=== PATIENT | male | born 1985 | race Hispanic/Latino ===

== ENCOUNTER 2017-10-02 16:51 | Emergency (ER) | payer SELFPAY ==
--- NOTE | 2017-10-02 17:16 | ER ---
Nurse's Notes [facility] Name: Tarik Solis Age: 32 yrs Sex: Male : 1985 Arrival Date: 10/02/2017 Time: 16:53 Bed 27 Private MD: Micha Francis Diagnosis: Encounter for removal of sutures Presentation: 10/02 16:54 Presenting complaint: Patient states: sutures on my R lower eye was placed last hj Thursday and is due for removal;. Transition of care: patient was not received from another setting of care. Onset of symptoms was October 02, 2017. Risk Assessment: Do you want to hurt yourself or someone else? Patient reports no desire to harm self or others. Initial Sepsis Screen: Does the patient meet any 2 criteria? No. Patient's initial sepsis screen is negative. Does the patient have a suspected source of infection? No. Patient's initial sepsis screen is negative. Care prior to arrival: None. 16:54 Method Of Arrival: Ambulatory 16:54 Acuity: KAITLIN 4 hj Triage Assessment: 16:55 General: Appears in no apparent distress. uncomfortable, Behavior is calm, cooperative, hj appropriate for age. Pain: Denies pain. Historical: - Allergies: 16:56 No Known Allergies; hj - Home Meds: 16:56 None [Active]; hj - PMHx: 16:56 None; hj - PSHx: 16:56 None; hj - Immunization history:: Adult Immunizations up to date. - Social history:: Smoking status: Patient uses tobacco products, smokes one pack cigarettes per day. Patient uses alcohol, occasionally. - Ebola Screening: : Patient negative for fever greater than or equal to 101.5 degrees Fahrenheit, and additional compatible Ebola Virus Disease symptoms Patient denies exposure to infectious person Patient denies travel to an Ebola-affected area in the 21 days before illness onset. Screenin:55 Abuse screen: Denies threats or abuse. Denies injuries from another. Nutritional hj screening: No deficits noted. Tuberculosis screening: No symptoms or risk factors identified. Fall Risk None identified. Assessment: 17:07 Derm: Skin is intact, Wound noted face Wound is post sutured wound, healed. mg2 Vital Signs: 16:56 BP 151 / 91; Pulse 96; Resp 18; Temp 97.5(TE); Pulse Ox 100% on R/A; Weight 117.93 kg; hj Height 5 ft. 9 in. (175.26 cm); Pain 0/10; 16:56 Body Mass Index 38.39 (117.93 kg, 175.26 cm) ED Course: 16:53 Patient arrived in ED. sb2 16:54 Micha Francis MD is Private Physician. sb2 16:55 Triage completed. hj 16:55 Arm band placed on left wrist. hj 16:56 Patient has correct armband on for positive identification. Bed in low position. Call light in reach. Side rails up X 1. 16:59 Don White PA is PHCP. cp 16:59 Joaquin Trinh MD is Attending Physician. cp 17:07 Javon Martinez, NIRANJAN is Primary Nurse. mg2 17:08 Patient did not have IV access during this emergency room visit. mg2 17:31 Removal of Removed sutures from face Suture site is well healed Patient tolerated well. mg2 17:32 No provider procedures requiring assistance completed. mg2 Administered Medications: No medications were administered Outcome: 17:15 Discharge ordered by MD. cp 17:32 Discharged to home ambulatory, with family. mg2 17:32 Condition: stable 17:32 Discharge instructions given to patient, family, Instructed on discharge instructions, follow up and referral plans. Demonstrated understanding of instructions, follow-up care. 17:32 Patient left the ED. mg2 Signatures: Herberth Marrero RN RN Don White PA PA Yanira Holm sb2 Javon Martinez, NIRANJAN RN mg2 Corrections: (The following items were deleted from the chart) 16:59 16:56 Pulse 96bpm; Resp 18bpm; Pulse Ox 100% RA; Temp 97.5F Temporal; 117.93 kg; Height hj 5 ft. 9 in.; BMI: 38.3; Pain 0/10; hj
--- NOTE | 2017-10-02 17:16 | EDPHYS ---
Physician Documentation [facility] Name: Tarik Solis Age: 32 yrs Sex: Male : 1985 Arrival Date: 10/02/2017 Time: 16:53 Bed 27 Private MD: Micha Francis ED Physician Joaquin Trinh HPI: 10/02 17:10 This 32 yrs old Male presents to ER via Ambulatory with complaints of Suture cp Removal. 17:10 The patient has sutures on the face. Previous treatment: The patient was initially cp treated 6 day(s) ago, the care was rendered at [place], [place], Treatment type: The patient's original treatment included sutures. Sutures/мария progress: The patient has no c/o's. The wound is well-healing with no redness, swelling, discharge, or dehiscence reported. Historical: - Allergies: 16:56 No Known Allergies; hj - Home Meds: 16:56 None [Active]; hj - PMHx: 16:56 None; hj - PSHx: 16:56 None; hj - Immunization history:: Adult Immunizations up to date. - Social history:: Smoking status: Patient uses tobacco products, smokes one pack cigarettes per day. Patient uses alcohol, occasionally. - Ebola Screening: : Patient negative for fever greater than or equal to 101.5 degrees Fahrenheit, and additional compatible Ebola Virus Disease symptoms Patient denies exposure to infectious person Patient denies travel to an Ebola-affected area in the 21 days before illness onset. ROS: 17:11 Skin: Positive for of the face, sutures. cp 17:11 All other systems are negative. Exam: 17:12 Constitutional: The patient appears in no acute distress, alert, awake, non-toxic, well cp developed, well nourished. 17:12 Head/face: Noted is sutures placed to area below right eye and right lateral facial cheek. 17:12 Skin: Wound recheck: Suture laceration closure: the wound is healing well, the edges are well approximated, no evidence of dehiscence, no drainage, no erythema, no swelling. Vital Signs: 16:56 BP 151 / 91; Pulse 96; Resp 18; Temp 97.5(TE); Pulse Ox 100% on R/A; Weight 117.93 kg; hj Height 5 ft. 9 in. (175.26 cm); Pain 0/10; 16:56 Body Mass Index 38.39 (117.93 kg, 175.26 cm) Procedures: 17:13 Suture/Staple removal: Removed 12 sutures, from face, site appears well healed, Patient cp tolerated well. MDM: 16:59 Patient medically screened. cp 17:14 Data reviewed: vital signs, nurses notes, and as a result, I will discharge patient. cp Administered Medications: No medications were administered Disposition: 17:15 Chart complete. cp Disposition: 10/02/17 17:15 Discharged to Home. Impression: Encounter for removal of sutures. - Condition is Stable. - Discharge Instructions: Sterile Tape Wound Care, Suture Removal, Care After. - Medication Reconciliation Form, Thank You Letter, Antibiotic Education, Prescription Opioid Use form. - Follow up: Private Physician; When: 2 - 3 days; Reason: Wound Recheck. - Problem is new. - Symptoms have improved. Addendum: 10/06/2017 22:12 Co-signature as Attending Physician, Joaquin Trinh MD Available for consultation at p s1 all times. . Signatures: Herberth Marrero RN RN Don White PA PA cp Joaquin Trinh MD MD [facility] Javon Martinez RN RN mg2 Corrections: (The following items were deleted from the chart) 10/02 17:32 17:15 10/02/2017 17:15 Discharged to Home. Impression: Encounter for removal of mg2 sutures. Condition is Stable. Forms are Medication Reconciliation Form, Thank You Letter, Antibiotic Education, Prescription Opioid Use. Follow up: Private Physician; When: 2 - 3 days; Reason: Wound Recheck. Problem is new. Symptoms have improved. cp
== END 2017-10-02 17:32 | disposition home or self-care (01) ==
LOC: ER 16:51
DX: Z48.02 Encounter for removal of sutures (principal); F17.210 Nicotine dependence, cigarettes, uncomplicated
CPT/HCPCS: 99281

== ENCOUNTER 2018-12-17 08:16 | Emergency (ER) | payer OTHER, SELFPAY ==
[2018-12-17] MEDS ORDERED: LIDOCAINE 1% 20 ML MDV ONE (08:26)
[2018-12-17] MEDS ORDERED: TETANUS & DIPHTHERIA TOX,ADULT 0.5 ML VIAL ONE (08:39)
--- NOTE | 2018-12-17 09:11 | ER ---
Nurse's Notes [facility] Name: Tarik Solis Age: 33 yrs Sex: Male : 1985 Arrival Date: 12/17/2018 Time: 08:19 Bed 13 Private MD: Unknown, Unknown Diagnosis: Laceration without foreign body of right ear Presentation: 12/17 08:31 Presenting complaint: Patient states: at 0800 I was getting in my car and caught the ch ring on the soft top. my R earring was ripped thru my ear lobe, split it straight down. ring gauge 10 or 12. Transition of care: patient was not received from another setting of care. Onset of symptoms was December 17, 2018 at 08:00. Risk Assessment: Do you want to hurt yourself or someone else? Patient reports no desire to harm self or others. Initial Sepsis Screen: Does the patient meet any 2 criteria? No. Patient's initial sepsis screen is negative. Does the patient have a suspected source of infection? No. Patient's initial sepsis screen is negative. Care prior to arrival: None. 08:31 Method Of Arrival: Ambulatory 08:31 Acuity: KAITLIN 4 Triage Assessment: 08:33 General: Appears in no apparent distress. comfortable, Behavior is calm, cooperative, ch appropriate for age. Pain: Complains of pain in right ear lobe Pain currently is 7 out of 10 on a pain scale. Pain began suddenly, 30 min ago. Neuro: No deficits noted. Respiratory: No deficits noted. Derm: Skin is healthy with good turgor, Skin is pink, warm \T\ dry. Injury Description: Laceration sustained to right ear is clean, full thickness, 0.5 to 2.5 cm long, was sustained 30-60 minutes ago. a small amount of bleeding noted at this time. Historical: - Allergies: 08:33 No Known Allergies; ch - Home Meds: 08:33 None [Active]; ch - PMHx: 08:33 possible hypertension; ch - PSHx: 08:33 None; ch - Immunization history:: Adult Immunizations up to date. - Social history:: Smoking status: Patient uses tobacco products, smokes one pack cigarettes per day. Patient uses alcohol, but reports only rare drinking. street drugs, cocaine, rare. - Ebola Screening: : Patient negative for fever greater than or equal to 101.5 degrees Fahrenheit, and additional compatible Ebola Virus Disease symptoms Patient denies exposure to infectious person Patient denies travel to an Ebola-affected area in the 21 days before illness onset No symptoms or risks identified at this time. Screenin:35 Abuse screen: Denies threats or abuse. Denies injuries from another. Nutritional ch screening: No deficits noted. Tuberculosis screening: No symptoms or risk factors identified. Fall Risk None identified. Assessment: 08:35 Reassessment: Patient appears in no apparent distress at this time. Patient and/or ch family updated on plan of care and expected duration. Pain level reassessed. Patient is alert, oriented x 3, equal unlabored respirations, skin warm/dry/pink. 09:11 Reassessment: Patient appears in no apparent distress at this time. Patient and/or ch family updated on plan of care and expected duration. Pain level reassessed. Patient is alert, oriented x 3, equal unlabored respirations, skin warm/dry/pink. Patient denies pain at this time. Patient states feeling better. Patient states symptoms have improved. Vital Signs: 08:33 BP 154 / 92; Pulse 103; Resp 22; Temp 98.2; Pulse Ox 99% on R/A; Weight 108.86 kg; ch Height 5 ft. 9 in. (175.26 cm); Pain 7/10; 08:33 Body Mass Index 35.44 (108.86 kg, 175.26 cm) ED Course: 08:19 Patient arrived in ED. ag5 08:19 Unknown, Unknown is Private Physician. ag5 08:30 Digna Thompson, RN is Primary Nurse. 08:32 Triage completed. 08:33 Arm band placed on left wrist. Patient placed in an exam room, on a stretcher, on pulse oximetry. 08:35 No apparent distress. Resting quietly. 08:35 Patient has correct armband on for positive identification. Bed in low position. Call light in reach. Side rails up X 1. Adult w/ patient. Pulse ox on. NIBP on. 08:35 Patient did not have IV access during this emergency room visit. 08:36 [facility] kb 08:36 Zay Lin MD is Attending Physician. kb 09:11 Assist provider with laceration repair on right ear lobe that was 2.5 cm. or less using sutures. Set up tray. Performed by Soledad ROCHA Dressed with Neosporin, Patient tolerated well. Administered Medications: 08:40 Drug: Lidocaine (1 %) 1 vials {Note: placed at bedside per orders. 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 Lot #: [id number]. } Route: IM; Site: left deltoid; 09:21 Follow up: Response: No adverse reaction Outcome: 09:10 Discharge ordered by . sai 09:21 Discharged to home ambulatory, with family. 09:21 Condition: stable 09:21 Discharge instructions given to patient, family, Instructed on discharge instructions, follow up and referral plans. medication usage, wound care, Demonstrated understanding of instructions, follow-up care, wound care. 09:21 Patient left the ED. Signatures: Soledad Calhoun, JOSEFINA HOFFP-Digna Aaron, RN RN Karel Rosa ag5 Corrections: (The following items were deleted from the chart) 09:12 09:11 No provider procedures requiring assistance completed. [facility] [address]
--- NOTE | 2018-12-17 09:11 | EDPHYS ---
Physician Documentation [facility] Name: Tarik Solis Age: 33 yrs Sex: Male : 1985 Arrival Date: 12/17/2018 Time: 08:19 Bed 13 Private MD: Unknown, Unknown ED Physician Zay Lin HPI: 12/17 09:14 This 33 yrs old Male presents to ER via Ambulatory with complaints of Ear kb Injury. 09:14 The patient presents with a laceration, 1.5 cm(s), clean. The complaints affect the kb right ear lobe. Onset: The symptoms/episode began/occurred just prior to arrival. Modifying factors: The symptoms are alleviated by nothing, the symptoms are aggravated by nothing. Associated signs and symptoms: The patient has no apparent associated signs or symptoms. Severity of symptoms: At their worst the symptoms were moderate in the emergency department the symptoms are unchanged. The patient has not experienced similar symptoms in the past. The patient has not recently seen a physician. Pt's earring got caught and pulled out of ear causing laceration to ear lobe. Historical: - Allergies: 08:33 No Known Allergies; ch - Home Meds: 08:33 None [Active]; ch - PMHx: 08:33 possible hypertension; ch - PSHx: 08:33 None; ch - Immunization history:: Adult Immunizations up to date. - Social history:: Smoking status: Patient uses tobacco products, smokes one pack cigarettes per day. Patient uses alcohol, but reports only rare drinking. street drugs, cocaine, rare. - Ebola Screening: : Patient negative for fever greater than or equal to 101.5 degrees Fahrenheit, and additional compatible Ebola Virus Disease symptoms Patient denies exposure to infectious person Patient denies travel to an Ebola-affected area in the 21 days before illness onset No symptoms or risks identified at this time. ROS: 09:08 Constitutional: Negative for fever, chills, and weight loss, Cardiovascular: Negative kb for chest pain, palpitations, and edema, Respiratory: Negative for shortness of breath, cough, wheezing, and pleuritic chest pain, Abdomen/GI: Negative for abdominal pain, nausea, vomiting, diarrhea, and constipation, MS/Extremity: Negative for injury and deformity, Neuro: Negative for headache, weakness, numbness, tingling, and seizure. 09:08 Skin: Positive for laceration(s), of the right ear lobe. Exam: 09:08 Constitutional: This is a well developed, well nourished patient who is awake, alert, kb and in no acute distress. Head/Face: Normocephalic, atraumatic. Neck: Trachea midline, no thyromegaly or masses palpated, and no cervical lymphadenopathy. Supple, full range of motion without nuchal rigidity, or vertebral point tenderness. No Meningismus. Chest/axilla: Normal chest wall appearance and motion. Nontender with no deformity. No lesions are appreciated. Cardiovascular: Regular rate and rhythm with a normal S1 and S2. No gallops, murmurs, or rubs. Normal PMI, no JVD. No pulse deficits. Respiratory: Lungs have equal breath sounds bilaterally, clear to auscultation and percussion. No rales, rhonchi or wheezes noted. No increased work of breathing, no retractions or nasal flaring. Abdomen/GI: Soft, non-tender, with normal bowel sounds. No distension or tympany. No guarding or rebound. No evidence of tenderness throughout. Back: No spinal tenderness. No costovertebral tenderness. Full range of motion. MS/ Extremity: Pulses equal, no cyanosis. Neurovascular intact. Full, normal range of motion. Neuro: Awake and alert, GCS 15, oriented to person, place, time, and situation. Cranial nerves II-XII grossly intact. Motor strength 5/5 in all extremities. Sensory grossly intact. Cerebellar exam normal. Normal gait. 09:08 Skin: injury, laceration(s), the wound is approximately 1.5 cm(s), of the right ear lobe, that can be described as clean, no foreign body, through and through, without bleeding. Vital Signs: 08:33 BP 154 / 92; Pulse 103; Resp 22; Temp 98.2; Pulse Ox 99% on R/A; Weight 108.86 kg; ch Height 5 ft. 9 in. (175.26 cm); Pain 7/10; 08:33 Body Mass Index 35.44 (108.86 kg, 175.26 cm) ch Laceration: 09:15 Wound Repair of 1.5cm ( 0.6in ) subcutaneous laceration to right ear lobe. Linear kb shaped.. Distal neuro/vascular/tendon intact. Anesthesia: Local anesthetic administered with 1 mls of 1% lidocaine. Wound prep: Extensive cleansing with hibiclenz by me, Wound irrigation with saline by me. Skin closed with 4 5-0 Prolene using interrupted sutures and sterile technique. Dressed with Neosporin. Patient tolerated well. MDM: 08:36 Patient medically screened. kb 09:07 Data reviewed: vital signs, nurses notes. Data interpreted: Pulse oximetry: on room air kb is 99 %. Interpretation: normal. Counseling: I had a detailed discussion with the patient and/or guardian regarding: the historical points, exam findings, and any diagnostic results supporting the discharge/admit diagnosis, the need for outpatient follow up, a family practitioner, to return to the emergency department if symptoms worsen or persist or if there are any questions or concerns that arise at home. 12/17 09:06 Order name: Prolene, Sutures; Complete Time: 09:10 kb 12/17 09:06 Order name: Dressing - Wound; Complete Time: 09:11 kb 12/17 09:06 Order name: Gloves, Sterile; Complete Time: 09:11 kb 12/17 09:06 Order name: Setup Suture Tray; Complete Time: 09:11 kb Administered Medications: 08:40 Drug: Lidocaine (1 %) 1 vials {Note: placed at bedside per orders. 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 Lot #: [id number]. } Route: IM; Site: left deltoid; 09:21 Follow up: Response: No adverse reaction Disposition: 09:30 Co-signature as Attending Physician, Zay Lin MD I agree with the assessment and kdr plan of care. Disposition: 12/17/18 09:10 Discharged to Home. Impression: Laceration without foreign body of right ear. - Condition is Stable. - Discharge Instructions: Laceration Care, Adult, [id number], Facial Laceration, [id number], Form - Return To Work. - Medication Reconciliation Form, Thank You Letter, Antibiotic Education, Prescription Opioid Use, Work release form form. - Follow up: Emergency Department; When: As needed; Reason: Worsening of condition. Follow up: Private Physician; When: 2 - 3 days; Reason: Recheck today's complaints, Continuance of care, Re-evaluation by your physician. - Notes: Have sutures removed in 10-14 days Signatures: Soledad Calhoun FNP-C FNP-Digna Aaron, RN RN Zay Lin MD MD [facility] Corrections: (The following items were deleted from the chart) 09:21 09:10 12/17/2018 09:10 Discharged to Home. Impression: Laceration without foreign body ch of right ear. Condition is Stable. Forms are Medication Reconciliation Form, Thank You Letter, Antibiotic Education, Prescription Opioid Use. Follow up: Emergency Department; When: As needed; Reason: Worsening of condition. Follow up: Private Physician; When: 2 - 3 days; Reason: Recheck today's complaints, Continuance of care, Re-evaluation by your physician. kb
[2018-12-17 09:27] VITALS: BP 154/92; TEMP 98.2; O2SAT 99
== END 2018-12-17 09:21 | disposition home or self-care (01) ==
LOC: ER 08:16
PROC: 0HQ2XZZ Repair Right Ear Skin, External Approach (ICD-10-PCS; principal; 2018-12-17)
DX: S01.311A Laceration without foreign body of right ear, initial encounter (principal); W26.8XXA Contact with other sharp object(s), not elsewhere classified, initial encounter; Y93.89 Activity, other specified; Y92.9 Unspecified place or not applicable; Z23 Encounter for immunization; F17.210 Nicotine dependence, cigarettes, uncomplicated
CPT/HCPCS: 90471; 90714; 99283

== ENCOUNTER 2024-03-07 15:27 | Emergency (ER) | payer BC, OTHER ==
--- NOTE | 2024-03-07 16:53 | RAD REPORT ---
EXAMINATION: ONE VIEW CHEST XR CLINICAL INDICATION: Male, 38 years old.,CHEST PAIN TECHNIQUE: Frontal chest projection is submitted. Examination is limited by patient positioning and t echnique. COMPARISON: No prior exam. FINDINGS: The lungs are well inflated and clear. No pneumothorax or sizable effusion. The heart is normal in s ize. Mediastinal contours are unremarkable. IMPRESSION: No acute intrathoracic abnormalities.
[2024-03-07 16:58] LABS: Absolute Basophils 0.1 K/uL (0-0.5); Absolute Eosinophils 0.8 K/uL (0-0.5); Absolute Lymphocytes (CBC) 2.4 K/uL (0.7-4.9); Absolute Monocytes 0.9 K/uL (0.1-1.3); Basophils % 0.6 % (0-1.3); Eosinophils % 7.1 % (0-4.4); Hematocrit 44.1 % (39.6-49.0); Hemoglobin 14.9 g/dL (13.6-17.9); Lymphocytes % 21.3 % (15.3-44.8); MCH 28.8 pg (27.0-35.0); MCHC 33.8 g/dL (32.0-36.0); MCV 85.3 fL (80-100); Monocytes % 7.9 % (3.3-12.3); Neutrophils % 63.1 % (41.7-73.7); Platelets 280 thou/uL (152-406); RBC Red Blood Cell Count 5.17 M/uL (4.33-5.43); Red Cell Distribution Width 12.8 % (12.1-15.2)
[2024-03-07 17:05] LABS: PT Prothrombin Time 11.4 SECONDS (9.4-12.5); Protime INR 1.09
[2024-03-07 17:18] LABS: ALT/SGPT 40 U/L (16-61); AST/SGOT 22 U/L (15-37); Albumin 3.4 g/dL (3.4-5.0); Albumin/Globulin Ratio 0.8 (1.1-1.8); Alkaline Phosphatase 103 U/L (45-117); Anion Gap 7.1 mEq/L (5.0-15.0); BUN Blood Urea Nitrogen 12 mg/dL (7-18); Bicarbonate 28 mEq/L (21-32); Bilirubin Total 0.3 mg/dL (0.2-1.0); Globulin 4.4 g/dL (2.3-3.5); Glomerular Filtration Rate 102 ml/min (=/>90); Glucose Level 90 mg/dL (74-106); Magnesium 1.9 mg/dL (1.6-2.4); NT PRO-BNP 7 pg/mL (<125); Potassium 4.1 mEq/L (3.5-5.1); Protein, Total 7.8 g/dL (6.4-8.2); Sodium Level 136 mEq/L (136-145); Troponin High Sensitivity 3.6 pg/mL (<58.9)
[2024-03-07 17:19] LABS: Bilirubin Direct < 0.2 mg/dL (0-0.2); Bilirubin Indirect, Calculated 0.1 mg/dL (0.2-0.8)
[2024-03-07] MEDS ORDERED: LORAZEPAM 1 MG TABLET ONE (18:35)
--- NOTE | 2024-03-07 19:03 | ER ---
Nurse's Notes [facility] Name: Tarik Solis Age: 38 yrs Sex: Male : 1985 Arrival Date: 03/07/2024 Time: 15:27 Bed 12 Private MD: Diagnosis: Noncardiac chest pain, right sided Presentation: 03/07 15:44 Chief complaint: Patient states: right sided chest pain started this afternoon around iw lunch time , hurts more when takes a breath. Coronavirus screen: At this time, the client does not indicate any symptoms associated with coronavirus-19. Ebola Screen: No symptoms or risks identified at this time. Initial Sepsis Screen: Does the patient meet any 2 criteria? No. Patient's initial sepsis screen is negative. Does the patient have a suspected source of infection? No. Patient's initial sepsis screen is negative. Risk Assessment: Do you want to hurt yourself or someone else? Patient reports no desire to harm self or others. Onset of symptoms was March 07, 2024. 15:44 Method Of Arrival: Ambulatory iw 15:44 Acuity: KAITLIN 3 iw Historical: - Allergies: 15:46 No Known Allergies; iw - Home Meds: 15:46 lisinopril 10 mg oral tablet daily [Active]; metformin 500 mg Oral tablet 2 times per iw day [Active]; something for anxiety and to stop smoking [Active]; - PMHx: 15:46 possible hypertension; Diabetes mellitus; iw - PSHx: 15:46 None; iw - Immunization history:: Adult Immunizations not up to date. - Infectious Disease History:: Denies. - Social history:: Smoking status: Reported history of juuling and/or vaping. Screenin:15 [facility] ED Fall Risk Assessment (Adult) History of falling in the last 3 months, jb4 including since admission No falls in past 3 months (0 pts) Confusion or Disorientation No (0 pts) Intoxicated or Sedated No (0 pts) Impaired Gait No (0 pts) Mobility Assist Device Used No (0 pt) Altered Elimination No (0 pt) Score/Fall Risk Level 0 - 2 = Low Risk Oriented to surroundings, Maintained a safe environment. Abuse screen: Denies threats or abuse. Nutritional screening: No deficits noted. Tuberculosis screening: No symptoms or risk factors identified. Assessment: 18:02 General: Appears in no apparent distress. comfortable, Behavior is calm, cooperative, jb4 appropriate for age. Pain: Complains of pain in chest Pain does not radiate. Pain currently is 7 out of 10 on a pain scale. Neuro: Level of Consciousness is awake, alert, obeys commands, Oriented to person, place, time, situation. Cardiovascular: Patient's skin is warm and dry. Respiratory: Airway is patent Respiratory effort is even, unlabored, Respiratory pattern is regular, symmetrical. Derm: Skin is intact, Skin is pink, warm \T\ dry. Musculoskeletal: Circulation, motion, and sensation intact. Range of motion: intact in all extremities. 19:15 Reassessment: Patient appears in no apparent distress at this time. Patient and/or jb4 family updated on plan of care and expected duration. Pain level reassessed. Patient is alert, oriented x 3, equal unlabored respirations, skin warm/dry/pink. Patient states feeling better. Vital Signs: 15:44 BP 140 / 82; Pulse 88; Resp 19; Temp 98.2; Pulse Ox 98% on R/A; Weight 136.53 kg; iw Height 5 ft. 10 in. ; Pain 7/10; 18:02 BP 164 / 101; Pulse 89; Resp 13; Pulse Ox 100% on R/A; jb4 15:44 Body Mass Index 43.19 (136.53 kg, 177.8 cm) iw 15:44 Pain Scale: Adult iw ED Course: 15:30 Patient arrived in ED. sj2 15:31 Garima Desai PA-C is PHCP. sb4 15:31 Eduardo Nair DO is Attending Physician. sb4 15:46 Triage completed. iw 15:47 Arm band placed on. iw 16:22 XRAY Chest (1 view) In Process Unspecified. EDMS 16:32 Basic Metabolic Panel Sent. bc6 16:32 CBC with Diff Sent. bc6 16:32 LFT's Sent. bc6 16:32 Magnesium Sent. bc6 16:32 NT PRO-BNP Sent. bc6 16:32 PT-INR Sent. bc6 16:32 Troponin HS Sent. bc6 16:32 Initial lab(s) drawn, by ma, sent to lab. Inserted saline lock: 20 gauge in left bc6 antecubital area, using aseptic technique. Blood collected. Flushed with 10 mL NS. 17:16 Natalie Escamilla, RN is Primary Nurse. iw 18:17 Troponin High Sensitivity Sent. jb4 19:15 Patient has correct armband on for positive identification. Bed in low position. Call jb4 light in reach. Side rails up X 1. Provided Education on: discharge instructions.. Client placed on continuous cardiac and pulse oximetry monitoring. NIBP monitoring applied. quality assurance monitor chassis on. Pulse ox on. 19:15 No provider procedures requiring assistance completed. IV discontinued, intact, jb4 bleeding controlled, No redness/swelling at site. Patient maintains SpO2 saturation greater than 95% on room air. Administered Medications: 18:45 Drug: LORazepam PO 1 mg PO once Route: PO; jb4 19:15 Follow up: Response: No adverse reaction; Marked relief of symptoms; Anxiety decreased jb4 Medication: 19:15 VIS not applicable for this client. jb4 Outcome: 19:03 Discharge ordered by MD. sb4 19:15 Discharged to home ambulatory, jb4 19:15 Condition: stable 19:15 Discharge instructions given to patient, Instructed on discharge instructions, follow up and referral plans. Demonstrated understanding of instructions, follow-up care, 19:17 Patient left the ED. jb4 Signatures: Dispatcher [employer] EDMS Natalie Escamilla, RN RN Nando Kramer RN RN jb4 Garima Desai, PADioniC PADioniC sb4 Norah Vazquez6 Leeanna Castaneda sj2 Corrections: (The following items were deleted from the chart) 15:47 15:46 Immunization history: Adult Immunizations up to date, iw iw 16:35 15:44 Pulse 88bpm; Resp 19bpm; Pulse Ox 98% RA; Temp 98.2F; 136.53 kg; Height 5 ft. 10 iw in.; BMI: 43.1; Pain 7/10, Adult; iw
--- NOTE | 2024-03-07 19:03 | EDPHYS ---
Physician Documentation [facility] Name: Tarik Solis Age: 38 yrs Sex: Male : 1985 Arrival Date: 03/07/2024 Time: 15:27 Bed 12 Private MD: ED Physician Eduardo Nair HPI: 03/07 16:21 This 38 yrs old Male presents to ER via Ambulatory with complaints of Chest sb4 Pain. 17:07 Patient reports right-sided chest pain that began while at work today. He states the sb4 pain does not radiate. He states the pain is worse with certain movements and coughing. Denies any shortness of breath or dizziness. Denies any cardiac history. Does report a history of hypertension and recent diagnosis of type 2 diabetes. Historical: - Allergies: 15:46 No Known Allergies; iw - Home Meds: 15:46 lisinopril 10 mg oral tablet daily [Active]; metformin 500 mg Oral tablet 2 times per iw day [Active]; something for anxiety and to stop smoking [Active]; - PMHx: 15:46 possible hypertension; Diabetes mellitus; iw - PSHx: 15:46 None; iw - Immunization history:: Adult Immunizations not up to date. - Infectious Disease History:: Denies. - Social history:: Smoking status: Reported history of juuling and/or vaping. ROS: 17:07 Constitutional: Negative for fever, chills, and weight loss, sb4 17:07 Cardiovascular: Positive for chest pain, 17:07 All other systems are negative, Exam: 17:07 Constitutional: This is a well developed, well nourished patient who is awake, alert, sb4 and in no acute distress. Head/Face: Normocephalic, atraumatic. Eyes: Extra-ocular motions intact. Periorbital areas with no swelling, redness, or edema. ENT: Mucous membranes moist. Cardiovascular: Regular rate and rhythm with a normal S1 and S2. Respiratory: No increased work of breathing, no retractions or nasal flaring. Abdomen/GI: Soft, non-tender, no distension. Skin: Warm, dry with normal turgor. Normal color with no rashes, no lesions, and no evidence of cellulitis. Vital Signs: 15:44 BP 140 / 82; Pulse 88; Resp 19; Temp 98.2; Pulse Ox 98% on R/A; Weight 136.53 kg; iw Height 5 ft. 10 in. ; Pain 7/10; 18:02 BP 164 / 101; Pulse 89; Resp 13; Pulse Ox 100% on R/A; jb4 15:44 Body Mass Index 43.19 (136.53 kg, 177.8 cm) iw 15:44 Pain Scale: Adult iw MDM: 15:45 Medical Screening Exam initiated sb4 18:34 Data reviewed: vital signs, nurses notes, lab test result(s), EKG, radiologic studies, sb4 and as a result, I will discharge patient. Consideration of Admission/Observation Escalation of care including admission/observation considered. Care significantly affected by the following chronic conditions: Diabetes, Hypertension, Obesity. Scoring Tools HEART Score: History: ECG: Age: Risk Factors: > or = 3 Risk factors for atherosclerotic disease (2), Troponin: Total Score = 2. 18:36 Differential diagnosis: anxiety, muscle strain, [place], pneumonia, bronchitis. 03/07 16:11 Order name: Basic Metabolic Panel; Complete Time: 17:20 03/07 16:11 Order name: CBC with Diff; Complete Time: 17:01 03/07 16:11 Order name: LFT's; Complete Time: 17:20 03/07 16:11 Order name: Magnesium; Complete Time: 17:20 03/07 16:11 Order name: NT PRO-BNP; Complete Time: 17:20 03/07 16:11 Order name: PT-INR; Complete Time: 17:05 03/07 16:11 Order name: Troponin HS; Complete Time: 17:20 03/07 17:47 Order name: Troponin High Sensitivity; Complete Time: 18:50 03/07 16:11 Order name: XRAY Chest (1 view); Complete Time: 16:54 03/07 16:11 Order name: EKG; Complete Time: 16:11 03/07 16:11 Order name: Cardiac monitoring; Complete Time: 18:11 03/07 16:11 Order name: EKG - Nurse/Tech; Complete Time: 16:25 03/07 16:11 Order name: IV Saline Lock; Complete Time: 16:32 03/07 16:11 Order name: Labs collected and sent; Complete Time: 16:32 sb4 03/07 16:11 Order name: O2 Per Protocol; Complete Time: 17:16 sb4 03/07 16:11 Order name: O2 Sat Monitoring; Complete Time: 17:16 sb4 EC:12 Rate is 82 beats/min. Rhythm is regular, Normal Sinus Rhythm. NC interval is normal at sb4 124 msec. QRS interval is normal at 80 msec. QT interval is normal at 384 msec. No Q waves. T waves are Normal. No ST changes noted. Clinical impression: Normal ECG. Interpreted by me. Reviewed by me. Administered Medications: 18:45 Drug: LORazepam PO 1 mg PO once Route: PO; jb4 19:15 Follow up: Response: No adverse reaction; Marked relief of symptoms; Anxiety decreased jb4 Disposition: 16:14 I was immediately available on-site in the Emergency Department for consultation in the ms3 care of the patient. Disposition Summary: 03/07/24 19:03 Discharge Ordered Notes: Location: Home sb4 Problem: new sb4 Symptoms: have improved sb4 Condition: Stable sb4 Diagnosis - Noncardiac chest pain, right sided sb4 Followup: sb4 - With: Emergency Department - When: As needed - Reason: Trouble breathing, Worsening of condition Discharge Instructions: - Discharge Summary Sheet sb4 - Nonspecific Chest Pain, Adult, [id number] sb4 - Managing Anxiety, Adult sb4 Forms: - Work release form sb4 - Patient Portal Instructions sb4 - Leadership Thank You Letter sb4 Signatures: Dispatcher [employer] Natalie Smith RN RN iw Bryson, James, RN RN jb4 Sims, Marcus, DO DO ms3 Garima Desai PA-C PADemarco sb4 Corrections: (The following items were deleted from the chart) 15:47 15:46 Immunization history: Adult Immunizations up to date, [facility]
[2024-03-08 17:04] VITALS: BP 164/101; TEMP 98.2; O2SAT 100
--- NOTE | 2024-03-10 12:02 | EKG ---
Test Date: 2024-03-07 Test Time: 15:54:11 Sweep Press Operator: JUANJO MEASUREMENT RESULTS: Intervals: Rate: 82 WI: 124 QRSD: 80 QT: 384 QTc: 448 [place]: P: 14 WI: 124 QRS: 22 T: 54 INTERPRETIVE STATEMENTS: Normal sinus rhythm Normal ECG No previous ECG available for comparison Electronically Signed On 03-10-24 11:59:51 SCALE MODEL MAKER by Abram Vargas
== END 2024-03-07 19:17 | disposition home or self-care (01) ==
LOC: ER 15:27
DX: R07.89 Other chest pain (principal); I10 Essential (primary) hypertension
CPT/HCPCS: 36415; 71045; 80048; 80076; 83735; 83880; 84484; 85025; 85610; 93005; 99284